=== PATIENT | male | born 1970 | race Caucasian/White ===

== ENCOUNTER 2018-05-25 10:00 | Emergency (ER) | payer SELFPAY ==
[~2018-05-25] VITALS: Ht 193 cm; Wt 117.0 kg
[2018-05-25] MEDS ORDERED: KETOROLAC 60MG/2ML VIAL IM STA (14:55)
[2018-05-25] MEDS ORDERED: METHYLPREDNISOLONE SOD SUCC 125 MG/2 ML VIAL IM STA (16:48)
[2018-05-25 17:00] VITALS: BP 136/89
== END 2018-05-25 17:09 | disposition home or self-care (01) ==
LOC: ER 14:37
DX: M25.461 Effusion, right knee (principal); M25.561 Pain in right knee; F17.200 Nicotine dependence, unspecified, uncomplicated; X58.XXXA Exposure to other specified factors, initial encounter; Y93.89 Activity, other specified; Y92.89 Other specified places as the place of occurrence of the external cause; Y99.8 Other external cause status
CPT/HCPCS: 73560; 93971; 96372; 99284; J1885; J2930